=== PATIENT | female | born 2005 | race Two or more races ===

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

== ENCOUNTER 2023-05-08 10:20 | Inpatient (IN) | payer MEDICAID ==
[~2023-05-08] VITALS: Ht 165.1 cm; Wt 90.0 kg
[2023-05-08] MEDS ORDERED: WITCH HAZEL-GLYCERIN PAD TOP PRN (11:00)
[2023-05-08] MEDS ORDERED: PROMETHAZINE HCL 25 MG/ML 1ML IV PRN (11:00)
[2023-05-08] MEDS ORDERED: PHISODERM TOP SOLN 240ML BTL TOP PRN (11:00)
[2023-05-08] MEDS ORDERED: LIDOCAINE 2%HCL (LOCAL ANESTH.) INJ 20ML MDV IJ PRN (11:00)
[2023-05-08] MEDS ORDERED: DERMOPLAST 60ML BOTTLE TOP PRN (11:00)
[2023-05-08] MEDS ORDERED: LACT. RINGERS/OXYTOCIN 20UNITS 500 ML IV ONE ×2 (11:00→11:30)
[2023-05-08] MEDS: LACTATED RINGER'S 1,000 ML IV SCH ×2 (11:40→17:00)
[2023-05-08 11:43] LABS: Basophils # (auto) 0 10 ^3/uL (0-0.2); Basophils % (auto) 0.3 % (0.0-2.0); Eosinophils # (auto) 0.1 10 ^3/uL (0-0.8); Eosinophils % (auto) 0.9 % (0.0-7.0); Hematocrit 36.6 % (36.0-46.0); Hemoglobin 12.3 g/dL (12.2-16.2); Lymphocytes # (auto) 2.1 10 ^3/uL (0.4-5.4); Lymphocytes % (auto) 17.3 % (10.0-50.0); Mean Corpuscular Hemoglobin 29.8 pg (28.0-32.0); Mean Corpuscular Hgb Conc. 33.7 g/dL (32.0-36.0); Mean Corpuscular Volume 88.4 fL (80.0-100.0); Monocytes # (auto) 0.8 10 ^3/uL (0-1.3); Monocytes % (auto) 6.8 % (0.0-12.0); Neutrophils % (auto) 74.7 % (37.0-80.0); Nucleated Red Blood Cells % 0.1 %; Red Blood Cells 4.14 10^6/uL (4.0-5.20); Red Cell Distribution Width 14.2 % (11.8-14.3)
[2023-05-08 11:54] LABS: Urine Bacteria FEW /hpf (None Seen); Urine Blood 2+ /uL (Negative); Urine Clarity HAZY (Clear); Urine Color Yellow (Yellow); Urine Mucus FEW (None Seen); Urine Protein, UAD TRACE (Negative); Urine Specific Gravity 1.017 (1.001-1.035); Urine Urobilinogen Normal (Negative); Urine WBC 8 /hpf (0 - 5)
[2023-05-08 11:55] LABS: INR 0.92 (0.9-1.15); Partial Thromboplastin Time 24.9 SEC (24.5-34.5); Prothrombin Time 9.7 sec (9.3-11.8)
[2023-05-08 12:10] LABS: Amphetamine Screen, Urine Neg (NEGATIVE)
[2023-05-08 12:12] LABS: Alanine Aminotransferase 15 U/L (7-40); Albumin 3.6 g/dL (3.2-4.8); Alkaline Phosphatase 183 U/L (46-116); Anion Gap 6.1 (5-15); Aspartate Aminotransferase 16 U/L (13-40); BUN/Creatinine Ratio 12.1 (10.0-20.0); Blood Urea Nitrogen 7 mg/dL (9-23); Calcium 8.8 mg/dL (8.5-10.1); Carbon Dioxide 21.9 mmol/L (20-30); Chloride 108 mmol/L (98-107); Glucose 85 mg/dL (74-106); Sodium 136 mmol/L (136-145)
[2023-05-08 12:12] LABS: Barbiturate Scree,Urine Neg (NEGATIVE); Benzodiazephine Screen, Urine Neg (NEGATIVE); Cannabinoid Screen, Urine Neg (NEGATIVE); Cocaine Screen, Urine Neg (NEGATIVE); Opiate Scree,Urine Neg (NEGATIVE); Phencyclidine Screen, Urine Neg (NEGATIVE)
[2023-05-08 12:13] LABS: Bilirubin, Total 0.3 mg/dL (0.2-1.0)
[2023-05-08] MEDS ORDERED: methylPREDNISolone SOD SUCC 40 MG/ML VL IV ONE (15:30)
[2023-05-08] MEDS ORDERED: diphenhdrAMINE HCL 50 MG/1 ML VL IV ONE (15:30)
[2023-05-08] MEDS ORDERED: LACT. RINGERS/OXYTOCIN 20UNITS 1,000 ML IV SCH (20:15)
[2023-05-08] MEDS ORDERED: fentaNYL 400mCg/200ml W ROPIVA 200 ML EPI SCH (22:45)
[2023-05-08] MEDS ORDERED: LACTATED RINGER'S 1,000 ML IV ONE ×2 (22:45→23:30)
[2023-05-08] MEDS ORDERED: ROPIVACAINE HCL 200 ML EPI SCH ×2 (22:45→23:30)
[2023-05-08] MEDS ORDERED: ePHEDrine SULFATE 50 MG/ML AMP IV ONE ×2 (22:45→23:30)
[2023-05-08] MEDS ORDERED: NALOXONE HCL 0.4 MG/ML VIAL IV ONE ×2 (22:45→23:30)
[2023-05-08] MEDS ORDERED: fentaNYL CITRATE 100 MCG/2 ML VL ONE (23:20)
[2023-05-08] MEDS ORDERED: ePHEDrine SULFATE 50 MG/ML AMP ONE (23:21)
[2023-05-08] MEDS ORDERED: ROPIVACAINE HCL 200 ML ONE (23:21)
[2023-05-08] MEDS ORDERED: fentaNYL CITRATE 100 MCG/2 ML VL IV ONE (23:30)
[2023-05-09] VITALS (37 sets, daily range): BP systolic 61–176; BP diastolic 35–80; PULSE 95–149; RESP 12–23; TEMP 97.9–99.9; O2SAT 93–100
[2023-05-09] MEDS: LACTATED RINGER'S 1,000 ML IV SCH ×5 (00:15→21:37)
[2023-05-09] MEDS ORDERED: SODIUM CHLORIDE 0.9% 500 ML IUPC ONE (00:30)
[2023-05-09] MEDS ORDERED: SODIUM CHLORIDE 0.9% 1,000 ML IUPC SCH (00:30)
[2023-05-09 06:29] LABS: RPR Non Reactive (Non Reactive)
[2023-05-09] MEDS ORDERED: GENTAMICIN PER PHARMACY 0 ML IV SCH (06:30)
[2023-05-09] MEDS ORDERED: miSOPROStol 100 mcg TAB ONE (07:23)
[2023-05-09] MEDS ORDERED: METHYLERGONOVINE MALEATE 0.2 MG/ML AMP IM ONE (07:23)
[2023-05-09] MEDS ORDERED: CARBOPROST TROMETHAMINE 250 MCG/1ML VIAL IM ONE (07:30)
[2023-05-09] MEDS ORDERED: METHYLERGONOVINE MALEATE 0.2 MG/ML AMP IM PRN (07:30)
[2023-05-09] MEDS ORDERED: miSOPROStol 100 mcg TAB SL PRN (07:30)
[2023-05-09] MEDS ORDERED: ONDANSETRON HCL 4 MG/2 ML VIAL ONE (07:40)
[2023-05-09] MEDS ORDERED: DIPHENOXYLATE W/ATROPINE 2.5 MG TAB ONE (07:40)
[2023-05-09] MEDS ORDERED: CARBOPROST TROMETHAMINE 250 MCG/1ML VIAL IM PRN (07:45)
[2023-05-09] MEDS ORDERED: METOCLOPRAMIDE HCL 5MG/ml INJ 2ml VIAL ONE (07:57)
[2023-05-09] MEDS ORDERED: FAMOTIDINE (10MG/ML) 2ML VL IV ONE (07:57)
[2023-05-09] MEDS ORDERED: GENTAMICIN SULFATE IV ONE (08:00)
[2023-05-09] MEDS ORDERED: SODIUM CHL 0.9% IV ONE (08:00)
[2023-05-09 08:15] LABS: Basophils # (auto) 0 10 ^3/uL (0-0.2); Basophils % (auto) 0.2 % (0.0-2.0); Eosinophils # (auto) 0 10 ^3/uL (0-0.8); Hematocrit 35.9 % (36.0-46.0); Hemoglobin 11.9 g/dL (12.2-16.2); Lymphocytes # (auto) 1.3 10 ^3/uL (0.4-5.4); Lymphocytes % (auto) 7.6 % (10.0-50.0); Mean Corpuscular Hemoglobin 29.8 pg (28.0-32.0); Mean Corpuscular Hgb Conc. 33.2 g/dL (32.0-36.0); Mean Corpuscular Volume 89.6 fL (80.0-100.0); Monocytes # (auto) 0.9 10 ^3/uL (0-1.3); Monocytes % (auto) 4.9 % (0.0-12.0); Neutrophils # (auto) 15.3 10 ^3/uL (1.6-8.6); Neutrophils % (auto) 87.3 % (37.0-80.0); Red Cell Distribution Width 14.2 % (11.8-14.3); White Blood Cell 17.5 10^3/uL (4.4-10.8)
[2023-05-09 08:31] LABS: INR 0.95 (0.9-1.15); Partial Thromboplastin Time 24.5 SEC (24.5-34.5)
[2023-05-09] MEDS: ACETAMINOPHEN 325 MG TAB PO PRN ×2 (09:36→16:37)
[2023-05-09] MEDS ORDERED: AMPICILLIN SOD 2GM INJ 2 GM in SODIUM CHL 0.9% 100 ML IV SCH (12:00)
[2023-05-09 12:48] LABS: Basophils # (auto) 0.1 10 ^3/uL (0-0.2); Basophils % (auto) 0.3 % (0.0-2.0); Eosinophils # (auto) 0 10 ^3/uL (0-0.8); Hematocrit 33.1 % (36.0-46.0); Hemoglobin 10.8 g/dL (12.2-16.2); Lymphocytes # (auto) 1.2 10 ^3/uL (0.4-5.4); Lymphocytes % (auto) 6.1 % (10.0-50.0); Mean Corpuscular Hemoglobin 29.1 pg (28.0-32.0); Mean Corpuscular Hgb Conc. 32.4 g/dL (32.0-36.0); Mean Corpuscular Volume 89.8 fL (80.0-100.0); Monocytes % (auto) 5.3 % (0.0-12.0); Neutrophils # (auto) 17.3 10 ^3/uL (1.6-8.6); Neutrophils % (auto) 88.3 % (37.0-80.0); Red Blood Cells 3.69 10^6/uL (4.0-5.20); Red Cell Distribution Width 14.3 % (11.8-14.3); White Blood Cell 19.6 10^3/uL (4.4-10.8)
[2023-05-09] MEDS: AMPICILLIN SOD 2GM INJ 2 GM in SODIUM CHL 0.9% 100 ML IV SCH ×2 (15:10→21:40)
[2023-05-09] MEDS ORDERED: fentaNYL CITRATE 100 MCG/2 ML VL ONE (17:39)
[2023-05-09] MEDS ORDERED: fentaNYL CITRATE 100 MCG/2 ML VL IV ONE (18:00)
[2023-05-09 18:02] LABS: Basophils # (auto) 0 10 ^3/uL (0-0.2); Basophils % (auto) 0.1 % (0.0-2.0); Eosinophils # (auto) 0 10 ^3/uL (0-0.8); Eosinophils % (auto) 0.1 % (0.0-7.0); Hematocrit 30.1 % (36.0-46.0); Hemoglobin 9.8 g/dL (12.2-16.2); Lymphocytes # (auto) 1.6 10 ^3/uL (0.4-5.4); Lymphocytes % (auto) 9.4 % (10.0-50.0); Mean Corpuscular Hemoglobin 29.2 pg (28.0-32.0); Mean Corpuscular Hgb Conc. 32.5 g/dL (32.0-36.0); Mean Corpuscular Volume 89.8 fL (80.0-100.0); Neutrophils # (auto) 14.7 10 ^3/uL (1.6-8.6); Neutrophils % (auto) 84.4 % (37.0-80.0); Red Blood Cells 3.35 10^6/uL (4.0-5.20); Red Cell Distribution Width 14.5 % (11.8-14.3); White Blood Cell 17.4 10^3/uL (4.4-10.8)
[2023-05-09] MEDS ORDERED: DOCUSATE SOD 100 MG CAP PO PRN (18:15)
[2023-05-09] MEDS ORDERED: MORPHINE SULFATE INJ 2 MG/ml SYRG IV PRN (18:15)
[2023-05-09] MEDS ORDERED: ONDANSETRON HCL 4 MG/2 ML VIAL IV PRN (18:15)
[2023-05-09 18:22] LABS: INR 0.99 (0.9-1.15); Prothrombin Time 10.4 sec (9.3-11.8)
[2023-05-09] MEDS ORDERED: TRANEXAMIC ACID 1,000 MG in SODIUM CHL 0.9% 100 ML IV ONE (18:30)
[2023-05-09] MEDS: IBUPROFEN 600 MG TAB PO PRN (23:48)
[2023-05-10] VITALS (55 sets, daily range): BP systolic 97–123; BP diastolic 56–84; PULSE 91–121; RESP 10–23; TEMP 97.5–98.2; O2SAT 93–100
[2023-05-10] MEDS: LACTATED RINGER'S 1,000 ML IV SCH ×5 (02:15→22:29)
[2023-05-10] MEDS: AMPICILLIN SOD 2GM INJ 2 GM in SODIUM CHL 0.9% 100 ML IV SCH ×4 (02:23→22:20)
[2023-05-10 02:26] LABS: Hematocrit 31.6 % (36.0-46.0); Hemoglobin 10.5 g/dL (12.2-16.2)
[2023-05-10 02:47] LABS: Lactic Acid w/Reflex 3.8 mmol/L (0.4-2.0)
[2023-05-10 02:58] LABS: INR 1.01 (0.9-1.15); Prothrombin Time 10.6 sec (9.3-11.8)
[2023-05-10 05:43] LABS: Alanine Aminotransferase 15 U/L (7-40); Albumin 2.9 g/dL (3.2-4.8); Alkaline Phosphatase 133 U/L (46-116); Anion Gap 5 (5-15); Aspartate Aminotransferase 25 U/L (13-40); BUN/Creatinine Ratio 9.4 (10.0-20.0); Bilirubin, Total 0.4 mg/dL (0.2-1.0); Blood Urea Nitrogen 6 mg/dL (9-23); Carbon Dioxide 26 mmol/L (20-30); Chloride 108 mmol/L (98-107); Glucose 93 mg/dL (74-106); Potassium 3.9 mmol/L (3.5-5.1); Sodium 139 mmol/L (136-145); Total Protein 4.8 g/dL (5.7-8.2)
[2023-05-10 05:44] LABS: Calcium 8.3 mg/dL (8.7-10.4)
[2023-05-10 05:59] LABS: Basophils # (auto) 0 10 ^3/uL (0-0.2); Basophils % (auto) 0.2 % (0.0-2.0); Eosinophils # (auto) 0.1 10 ^3/uL (0-0.8); Eosinophils % (auto) 0.8 % (0.0-7.0); Hematocrit 32.2 % (36.0-46.0); Hemoglobin 10.7 g/dL (12.2-16.2); Lymphocytes # (auto) 2.3 10 ^3/uL (0.4-5.4); Lymphocytes % (auto) 15.4 % (10.0-50.0); Mean Corpuscular Hemoglobin 29.8 pg (28.0-32.0); Mean Corpuscular Hgb Conc. 33.3 g/dL (32.0-36.0); Mean Corpuscular Volume 89.6 fL (80.0-100.0); Monocytes % (auto) 6.7 % (0.0-12.0); Neutrophils # (auto) 11.7 10 ^3/uL (1.6-8.6); Neutrophils % (auto) 76.9 % (37.0-80.0); Nucleated Red Blood Cells % 0.1 %; Red Blood Cells 3.59 10^6/uL (4.0-5.20); Red Cell Distribution Width 14.2 % (11.8-14.3); White Blood Cell 15.1 10^3/uL (4.4-10.8)
[2023-05-10] MEDS: IBUPROFEN 600 MG TAB PO PRN ×3 (08:20→22:17)
[2023-05-10] MEDS ORDERED: SODIUM CHL 0.9% IV ONE (11:00)
[2023-05-10] MEDS ORDERED: GENTAMICIN SULFATE IV ONE (11:00)
[2023-05-10 11:24] LABS: Hematocrit 30.8 % (36.0-46.0); Hemoglobin 10.3 g/dL (12.2-16.2)
[2023-05-10] MEDS: ACETAMINOPHEN 325 MG TAB PO PRN (12:33)
[2023-05-10 20:06] LABS: Treponema pallidum Ab (FTA-Ab) Non Reactive (Non Reactive)
[2023-05-10] MEDS ORDERED: LACTATED RINGER'S 1,000 ML IV SCH (23:45)
[2023-05-11 03:20] VITALS: BP 110/75; PULSE 98; RESP 18; TEMP 97.8; O2SAT 97
[2023-05-11] MEDS ORDERED: AMPICILLIN SOD 2GM INJ 2 GM in SODIUM CHL 0.9% 100 ML IV SCH (04:30)
[2023-05-11 06:37] VITALS: BP 128/89; PULSE 98; RESP 18; TEMP 98.4; O2SAT 97
[2023-05-11] MEDS: IBUPROFEN 600 MG TAB PO PRN (06:54)
[2023-05-11 07:12] LABS: Basophils # (auto) 0.1 10 ^3/uL (0-0.2); Basophils % (auto) 0.6 % (0.0-2.0); Eosinophils # (auto) 0.1 10 ^3/uL (0-0.8); Eosinophils % (auto) 1.1 % (0.0-7.0); Hematocrit 33.6 % (36.0-46.0); Hemoglobin 11.2 g/dL (12.2-16.2); Lymphocytes # (auto) 2.2 10 ^3/uL (0.4-5.4); Lymphocytes % (auto) 18.6 % (10.0-50.0); Mean Corpuscular Hemoglobin 29.6 pg (28.0-32.0); Mean Corpuscular Hgb Conc. 33.3 g/dL (32.0-36.0); Mean Corpuscular Volume 88.9 fL (80.0-100.0); Monocytes # (auto) 0.6 10 ^3/uL (0-1.3); Neutrophils # (auto) 8.9 10 ^3/uL (1.6-8.6); Neutrophils % (auto) 74.7 % (37.0-80.0); Nucleated Red Blood Cells % 0.1 %; Red Blood Cells 3.78 10^6/uL (4.0-5.20); Red Cell Distribution Width 13.7 % (11.8-14.3); White Blood Cell 11.9 10^3/uL (4.4-10.8)
[2023-05-11] MEDS ORDERED: METR375C PO (08:29)
[2023-05-11] MEDS ORDERED: DOXY100C4 PO ×2 (08:29→08:44)
[2023-05-11] MEDS ORDERED: MET250PM IV (08:29)
[2023-05-11] MEDS ORDERED: PREN-129 OR (08:31)
[2023-05-11 09:55] VITALS: BP 124/62; PULSE 99; RESP 16; TEMP 98; O2SAT 97
[2023-05-11] MEDS ORDERED: DOCUSATE SOD 100 MG CAP PO SCH (10:00)
[2023-05-11] MEDS ORDERED: GENTAMICIN SULFATE IV SCH ×2 (11:00→13:30)
[2023-05-11] MEDS ORDERED: SODIUM CHL 0.9% IV SCH ×2 (11:00→13:30)
== END 2023-05-11 09:55 | disposition home or self-care (01) | DRG 560 ==
LOC: LDRP 10:20 → OBSVTOIN 10:59 → DOU IN ICU 05-09 20:50 → LDRP 05-10 22:48
PROVIDERS: ADMIT Obstetrics & Gynecology; ATTEND Obstetrics & Gynecology
PROC: 10E0XZZ Delivery of Products of Conception, External Approach (ICD-10-PCS; principal; 2023-05-09)
PROC: 30233N1 Transfusion of Nonautologous Red Blood Cells into Peripheral Vein, Percutaneous Approach (ICD-10-PCS; 2023-05-09)
PROC: 0HQ9XZZ Repair Perineum Skin, External Approach (ICD-10-PCS; 2023-05-09)
PROC: 3E0R3BZ Introduction of Anesthetic Agent into Spinal Canal, Percutaneous Approach (ICD-10-PCS; 2023-05-09)
PROC: 00HU33Z Insertion of Infusion Device into Spinal Canal, Percutaneous Approach (ICD-10-PCS; 2023-05-09)
DX: O41.1230 Chorioamnionitis, third trimester, not applicable or unspecified (principal); Z37.0 Single live birth; D62 Acute posthemorrhagic anemia; O72.1 Other immediate postpartum hemorrhage; O77.0 Labor and delivery complicated by meconium in amniotic fluid; Z3A.39 39 weeks gestation of pregnancy; R00.0 Tachycardia, unspecified; O70.0 First degree perineal laceration during delivery; O90.81 Anemia of the puerperium; J45.909 Unspecified asthma, uncomplicated
CPT/HCPCS: 36415; 36430; 59025; 59409; 62282; 76815; 76856; 80053; 80170; 80307; 81001; 81002; 82565; 83605; 85014; 85018; 85025; 85049; 85384; 85610; 85730; 86592; 86850; 86900; 86901; 86920; 87040; 87081; 93005; 94760; 96360; 96361; 96365; 96366; 96372; 96374; 96375; G0378; J1580; J2405; J2590; J3490

== ENCOUNTER 2023-11-20 09:37 | Emergency (ER) | payer MEDICAID ==
[~2023-11-20] VITALS: Ht 167.6 cm; Wt 65.0 kg
[~2023-11-20 09:37] MED LIST: DOXY100C4 PO; METR375C PO; PREN-129 OR
[2023-11-20 09:46] VITALS: BP 97/63; PULSE 85; RESP 19; O2SAT 96
[2023-11-20 11:57] LABS: Basophils # (auto) 0 10 ^3/uL (0-0.2); Basophils % (auto) 0.3 % (0.0-2.0); Eosinophils # (auto) 0.2 10 ^3/uL (0-0.8); Eosinophils % (auto) 2.9 % (0.0-7.0); Hematocrit 41.6 % (36.0-46.0); Hemoglobin 13.7 g/dL (12.2-16.2); Lymphocytes % (auto) 25.8 % (10.0-50.0); Mean Corpuscular Hemoglobin 29.5 pg (28.0-32.0); Mean Corpuscular Hgb Conc. 32.9 g/dL (32.0-36.0); Mean Corpuscular Volume 89.6 fL (80.0-100.0); Monocytes # (auto) 0.5 10 ^3/uL (0-1.3); Monocytes % (auto) 6.5 % (0.0-12.0); Neutrophils # (auto) 4.9 10 ^3/uL (1.6-8.6); Neutrophils % (auto) 64.5 % (37.0-80.0); Nucleated Red Blood Cells % 0.1 %; Red Blood Cells 4.65 10^6/uL (4.0-5.20); Red Cell Distribution Width 13.7 % (11.8-14.3); White Blood Cell 7.6 10^3/uL (4.4-10.8)
[2023-11-20 12:04] LABS: Chloride 108 mmol/L (98-107); Sodium 141 mmol/L (136-145)
[2023-11-20 12:05] LABS: Anion Gap 4 (5-15); Carbon Dioxide 29 mmol/L (20-30)
[2023-11-20 12:06] LABS: Calcium 9.4 mg/dL (8.7-10.4)
[2023-11-20 12:10] LABS: BUN/Creatinine Ratio 16.2 (10.0-20.0); Blood Urea Nitrogen 11 mg/dL (9-23); Glucose 93 mg/dL (74-106)
[2023-11-20 12:27] LABS: Urine Bacteria NONE SEEN /hpf (None Seen); Urine Blood 1+ /uL (Negative); Urine Clarity CLOUDY (Clear); Urine Color Yellow (Yellow); Urine Hyaline Cast MANY /lpf (0 - 2); Urine Mucus FEW (None Seen); Urine Protein, UAD TRACE (Negative); Urine Specific Gravity 1.035 (1.001-1.035); Urine Urobilinogen Normal (Negative); Urine WBC 24 /hpf (0 - 5); Urine WBC Clumps PRESENT /hpf (None Seen); Urine pH 5.5 (5.0-8.0)
[2023-11-20] MEDS ORDERED: CEPH500C PO (12:46)
[2023-11-20] MEDS ORDERED: MECL12.586 PO (12:46)
[2023-11-20] MEDS ORDERED: NABU-72 PO (12:46)
== END 2023-11-20 12:59 | disposition home or self-care (01) ==
LOC: ER 09:37
DX: R51.9 Headache, unspecified (principal); R42 Dizziness and giddiness; N39.0 Urinary tract infection, site not specified; Z32.02 Encounter for pregnancy test, result negative
CPT/HCPCS: 36415; 70450; 80048; 81001; 81025; 84484; 85025; 87086